=== PATIENT | female | born 1950 | race Caucasian/White ===

== ENCOUNTER 2016-05-21 11:14 | Outpatient (CLI) | payer MEDICARE | END 2016-05-21 11:15 | disposition home or self-care (01) | DX: E11.9 Type 2 diabetes mellitus without complications (principal); E78.5 Hyperlipidemia, unspecified; E03.9 Hypothyroidism, unspecified; I10 Essential (primary) hypertension ==

== ENCOUNTER 2016-10-23 14:01 | Outpatient (CLI) | payer MEDICARE ==
--- NOTE | 2016-10-24 13:04 | Mammography Report ---
DIGITAL SCREENING MAMMOGRAM: 10/23/2016 CLINICAL INDICATION: A 66-year-old with history of late childbearing, for screening. COMPARISON: 10/2013, 05/2012, 12/2009, 12/2008, 10/2007, 09/2006. TECHNIQUE: Routine CC and MLO projections were obtained of the breasts. FINDINGS: Parenchymal tissue within the breasts is predominantly fatty replaced. There are no domina nt masses, suspicious microcalcifications, or secondary signs of malignancy. In comparison to the pre vious studies, there are no significant changes. IMPRESSION: NO MAMMOGRAPHIC EVIDENCE OF MALIGNANCY. NO SIGNIFICANT INTERVAL CHANGES. RECOMMENDATION: Screening mammography is recommended annually. BIRADS category 1 - negative. STANDARD QUALIFYING STATEMENTS 1. This examination was reviewed with the aid of Computed-Aided Detection (CAD). 2. A negative or benign imaging report should not delay biopsy if clinically suspicious findings are present. Consider surgical consultation if warranted. More than 5% of cancers are not identified by i maging. 3. Dense breasts may obscure an underlying neoplasm. JOB #: [id number] EXT JOB #:[id number]
== END 2016-10-23 14:02 | disposition home or self-care (01) ==
LOC: DI.S 14:01
PROVIDERS: ATTEND Physician Assistant Medical
DX: Z12.31 Encounter for screening mammogram for malignant neoplasm of breast (principal)
CPT/HCPCS: 77067

== ENCOUNTER 2017-06-12 11:16 | Outpatient (CLI) | payer MEDICARE ==
[2017-06-12 18:25] LABS: CHOL/HDL RATIO 2.9 (<4.4); CHOLESTEROL 137 mg/dL; HDL CHOLESTEROL 47 mg/dL; LDL CHOLESTEROL,CALCULATED 63 mg/dL; LDL/HDL RATIO 1.3 (<4.4); VLDL CHOLESTEROL 27 mg/dL
[2017-06-12 19:09] LABS: CARBAMAZEPINE (TEGRETOL) < 2.0 ug/mL
[2017-06-12 19:31] LABS: HB2 TOTAL 13.6 g/dL; HEMOGLOBIN A1C 0.66 g/dL; HEMOGLOBIN A1C % 6.6 % (4.6-6.2)
== END 2017-06-12 11:17 | disposition home or self-care (01) ==
LOC: LAB.F 11:16
PROVIDERS: ATTEND Physician Assistant Medical
DX: E78.5 Hyperlipidemia, unspecified (principal); E11.9 Type 2 diabetes mellitus without complications; E03.9 Hypothyroidism, unspecified; Z51.81 Encounter for therapeutic drug level monitoring
CPT/HCPCS: 36415; 80061; 80156; 83036; 83721; 84443

== ENCOUNTER 2017-11-17 15:57 | Outpatient (CLI) | payer MEDICARE ==
[2017-11-17 17:54] LABS: CALCIUM 9.2 mg/dL (8.5-10.3); CREATININE 0.8 mg/dL (0.4-1.0)
== END 2017-11-17 15:58 | disposition home or self-care (01) ==
LOC: LAB.F 15:57
PROVIDERS: ATTEND Physician Assistant Medical
DX: I10 Essential (primary) hypertension (principal)
CPT/HCPCS: 36415; 80048

== ENCOUNTER 2017-12-23 15:18 | Outpatient (CLI) | payer MEDICARE ==
[2017-12-23 18:10] LABS: ALBUMIN 4.5 g/dL (3.2-5.5); ALBUMIN/GLOBULIN RATIO 1.7 (1.0-2.2); BILIRUBIN,TOTAL 0.4 mg/dL (0.2-1.0); CREATININE 0.7 mg/dL (0.4-1.0); TOTAL PROTEIN 7.2 g/dL (6.7-8.2)
[2017-12-23 18:50] LABS: HB2 TOTAL 13.8 g/dL; HEMOGLOBIN A1C 0.82 g/dL; HEMOGLOBIN A1C % 7.6 % (4.6-6.2)
== END 2017-12-23 15:19 | disposition home or self-care (01) ==
LOC: LAB.F 15:18
PROVIDERS: ATTEND Physician Assistant Medical
DX: I10 Essential (primary) hypertension (principal); E11.9 Type 2 diabetes mellitus without complications
CPT/HCPCS: 36415; 80053; 82043; 83036

== ENCOUNTER 2018-10-11 00:41 | Emergency (ER) | payer MEDICARE, OTHER ==
[2018-10-11] MEDS ORDERED: AZITHROMYCIN 250 MG TABLET PO STA (01:30)
[2018-10-11] MEDS ORDERED: DEXAMETHASONE 10 MG/ML VIAL PO STA (01:30)
[2018-10-11] MEDS ORDERED: CHERRY SYRUP 10 ML UDC PO ONE (01:30)
--- NOTE | 2018-10-11 01:33 | ED Physician Documentation ---
History of Present Illness - Stated complaint Stated Complaint: FEVER/BOWER/BODY ACHES - Chief complaint Chief Complaint: Fever - History obtained from History obtained from: Patient, Family - History of Present Illness Timing: Today - Additonal information Additional information: Previously well 68-year-old female complains of a low-grade fever and muscle and joint aches and pains beginning today. She has had minimal cough and she does have a headache. She felt that the headache may be a migraine when it began yesterday. Today she has developed a fever and aches and pains. She denies muffled hearing or ear pain she denies sore throat she denies urinary symptoms or difficulty breathing. Review of Systems Constitutional: reports: Fever, Chills, Myalgias, Fatigue, Sweats Eyes: denies: Decreased vision Ears: denies: Ear pain Nose: denies: Rhinorrhea / runny nose, Congestion Throat: denies: Sore throat Cardiac: denies: Chest pain / pressure, Palpitations Respiratory: reports: Cough. denies: Dyspnea GI: denies: Abdominal Pain, Nausea, Vomiting : denies: Dysuria, Frequency Skin: denies: Rash Musculoskeletal: denies: Neck pain, Back pain, Extremity pain Neurologic: reports: Headache. denies: Generalized weakness, Focal weakness, N umbness, Head injury, LOC PD PAST MEDICAL HISTORY - Past Medical History Past Medical History: Yes Cardiovascular: Hypertension, High cholesterol, Other Respiratory: Pneumonia Neuro: Headaches, Migraines Endocrine/Autoimmune: Type 2 diabetes, HyPOthyroidism GI: GERD, Hemorrhoids VENUE ATTENDANT: None : None HEENT: None Psych: Anxiety Musculoskeletal: Osteoarthritis, Chronic back pain Other Past Medical History: ventricular arrhythmia, diverticuli - Past Surgical History Past Surgical History: Yes General: Colonoscopy /VENUE ATTENDANT: Hysterectomy, Oophrectomy HEENT: Cataracts, Tonsil/Adenoidectomy - Present Medications Home Medications: Ambulatory Orders Medication Instructions Recorded Confirmed Atenolol 25 mg PO 05/17/15 05/17/15 Atorvastatin [Lipitor] 1 mg 05/17/15 05/17/15 Gabapentin 100 mg PO BID 05/17/15 05/17/15 Lisinopril 5 mg PO 05/17/15 05/17/15 Omeprazole 10 mg PO 05/17/15 05/17/15 PARoxetine [Paxil] 10 mg PO DAILY 05/17/15 05/17/15 Rizatriptan Benzoate [Rizatriptan] 5 mg PO 05/17/15 05/17/15 chlorproMAZINE [Thorazine] 25 mg PO TID 05/17/15 05/17/15 hydroCHLOROthiazide 12.5 mg PO 05/17/15 05/17/15 [Hydrochlorothiazide] metFORMIN [Glucophage] 500 mg PO ONCE 05/17/15 05/17/15 oxyCODONE [Roxicodone] 5 mg PO ONCE 05/17/15 05/17/15 Amox/Clav 875/125 [Augmentin] 1 each PO Q12H #20 tablet 10/11/18 - Allergies Allergies/Adverse Reactions: Allergies Allergy/AdvReac Type Severity Reaction Status Date / Time NSAIDS (Non-Steroidal Allergy Unknown Verified 10/11/18 00:58 Anti-Inflamma - Social History Does the pt smoke?: No Smoking Status: Never smoker Does the pt drink ETOH?: Yes ETOH Use: Wine Substance Use and Type: Marijuana - Immunizations Immunizations are current?: No Immunizations: TDAP >10years/unknown, Other immun current PD ED PE NORMAL - Vitals Vital signs reviewed: Yes (febrile ) - General General: Alert and oriented X 3, No acute distress, Well developed/nourished - HEENT HEENT: Atraumatic, PERRL, EOMI, Pharynx benign, Dentition benign, Other (There is inflamation to the right TM along the umbo and the left TM is clear ) - Neck Neck: Supple, no meningeal sign, No bony TTP - Cardiac Cardiac: RRR, No murmur - Respiratory Respiratory: No respiratory distress, Clear bilaterally - Abdomen Abdomen: Soft, Non tender - Back Back: No CVA TTP, No spinal TTP - Derm Derm: Normal color, Warm and dry, No rash - Extremities Extremities: No deformity, No edema - Neuro Neuro: Alert and oriented X 3, forensic social worker 2-12 intact, No motor deficit, No sensory deficit, Normal speech Eye Opening: Spontaneous Motor: Obeys Commands Verbal: Oriented GCS Score: 15 - Psych Psych: Normal mood, Normal affect Results - Vitals Vitals: Vital Signs - 24 hr 10/11/18 10/11/18 00:52 02:03 Temperature 37.8 C H 37.7 C H Heart Rate 69 Respiratory 16 Rate Blood Pressure 129/77 O2 Saturation 96 Oxygen O2 Source Room air - Labs Labs: Laboratory Tests 10/11/18 10/11/18 10/11/18 01:43 01:43 02:00 WBC 7.1 RBC 4.34 Hgb 12.9 Hct 38.1 MCV 87.9 MCH 29.7 MCHC 33.8 RDW 13.8 Plt Count 189 MPV 7.1 L Neut # (Auto) 5.4 Lymph # (Auto) 1.0 L Ste[place]s # (Auto) 0.6 Eos # (Auto) 0.1 Baso # (Auto) 0.0 Absolute Nucleated RBC 0.01 Nucleated RBC % 0.1 Sodium 138 Potassium 4.2 Chloride 102 Carbon Dioxide 24 Anion Gap 12.0 BUN 13 Creatinine 0.8 Estimated GFR (MDRD) 71 L Glucose 128 H Calcium 9.2 Total Bilirubin 0.9 AST 21 ALT 20 Alkaline Phosphatase 53 Total Protein 7.4 Albumin 4.1 Globulin 3.3 Albumin/Globulin Ratio 1.2 Lipase 34 Urine Color YELLOW Urine Clarity CLEAR Urine pH 6.5 Ur Specific [place] <=1.005 Urine Protein NEGATIVE Urine Glucose (UA) NEGATIVE Urine Ketones NEGATIVE Urine Occult Blood NEGATIVE Urine Nitrite NEGATIVE Urine Bilirubin NEGATIVE Urine Urobilinogen 0.2 (NORMAL) Ur Leukocyte Esterase TRACE H Urine RBC None Seen Urine WBC 6-10 H Ur Squamous Epith Cells RARE Squamous Urine Bacteria Rare Ur Microscopic Review INDICATED Urine Culture Comments INDICATED Procedures - IVC sono (time) 0120 Bedside IVC sono: IVC measures (cm) (1.4), Euvolemia (near) PD MEDICAL DECISION MAKING - ED course Complexity details: reviewed results, re-evaluated patient, considered differential, d/w patient, d/w family ED course: 68-year-old female with fever muscle and joint aches and pains has right otitis on examination. She is administered dexamethasone 10 mg orally and azithromycin 500 mg orally. Blood work and urinalysis are obtained. urinalysis is concerning for UTI and azithro is not a good choice for UTI. She is administered IM rocephin and we will place her on augmentin for both the OM and the UTI. Departure - Departure Disposition: 01 Home, Self Care Clinical Impression: Otitis media Qualifiers: Otitis media type: suppurative Chronicity: acute Laterality: right Recurrence: non-recurrent Spontaneous tympanic membrane rupture: without spontaneous rupture Qualified Code(s): H66.001 - Acute suppurative otitis media without spontaneous rupture of ear drum, right ear Urinary tract infection Qualifiers: Urinary tract infection type: acute cystitis Hematuria presence: without hematuria Qualified Code(s): N30.00 - Acute cystitis without hematuria Condition: Stable Instructions: ED Otitis Media Acute Adult, ED UTI Cystitis Female Follow-Up: Gianna Paez PA-C [Primary Care Provider] - Prescriptions: Amox/Clav 875/125 [Augmentin] 1 each PO Q12H #20 tablet
[2018-10-11 01:51] LABS: BASOPHILS % (AUTO) 0.4 %; EOSINOPHILS # (AUTO) 0.1 10^3/uL (0.0-0.7); EOSINOPHILS % (AUTO) 1.3 %; HGB - HEMOGLOBIN 12.9 g/dL (12.0-16.0); LYMPHOCYTES % (AUTO) 13.6 %; MEAN CORPUSCULAR HEMOGLOBIN 29.7 pg (27.0-31.0); MEAN CORPUSCULAR HGB CONC 33.8 g/dL (32.0-36.0); MEAN CORPUSCULAR VOLUME 87.9 fL (81.0-99.0); MEAN PLATELET VOLUME 7.1 fL (7.9-10.8); MONOCYTES # (AUTO) 0.6 10^3/uL (0.0-1.0); MONOCYTES % (AUTO) 8.1 %; NEUTROPHILS # (AUTO) 5.4 10^3/uL (1.5-6.6); NEUTROPHILS % (AUTO) 76.6 %; PLT - PLATELET COUNT 189 10^3/uL (130-450); RED BLOOD COUNT 4.34 10^6/uL (4.20-5.40); RED CELL DISTRIBUTION WIDTH 13.8 % (12.0-15.0); WHITE BLOOD COUNT 7.1 x10^3/uL (4.8-10.8)
[2018-10-11 02:01] LABS: ALBUMIN 4.1 g/dL (3.2-5.5); ALBUMIN/GLOBULIN RATIO 1.2 (1.0-2.2); BILIRUBIN,TOTAL 0.9 mg/dL (0.2-1.0); CALCIUM 9.2 mg/dL (8.5-10.3); CREATININE 0.8 mg/dL (0.4-1.0); TOTAL PROTEIN 7.4 g/dL (6.7-8.2)
[2018-10-11 02:09] LABS: BILIRUBIN,URINE NEGATIVE (NEGATIVE); GLUCOSE, URINE (UA) NEGATIVE (NEGATIVE); KETONES,URINE (UA) NEGATIVE (NEGATIVE); LEUKOCYTE ESTERASE, URINE TRACE (NEGATIVE); NITRITE,URINE NEGATIVE (NEGATIVE); OCCULT BLOOD,URINE NEGATIVE (NEGATIVE); PH,URINE 6.5 PH (5.0-7.5); PROTEIN,URINE NEGATIVE (NEGATIVE); UROBILINOGEN,URINE 0.2 (NORMAL) E.U./dL (NORMAL)
[2018-10-11 02:10] LABS: CLARITY,URINE CLEAR (CLEAR)
[2018-10-11 02:15] LABS: BACTERIA,URINE Rare /HPF (None Seen); RBC,URINE None Seen /HPF (0-5); SQUAMOUS EPITHELIAL CELL,UR RARE Squamous (<= Few)
[2018-10-11] MEDS ORDERED: LIDOCAINE 1% 2 ML VIAL MC ONE (02:26)
[2018-10-11] MEDS ORDERED: cefTRIAXone 1 GM VIAL IM STA (02:26)
[2018-10-11 03:24] VITALS: BP 105/77
== END 2018-10-11 03:25 | disposition home or self-care (01) ==
LOC: ED 00:41
DX: H66.001 Acute suppurative otitis media without spontaneous rupture of ear drum, right ear (principal); N30.00 Acute cystitis without hematuria; I10 Essential (primary) hypertension; E11.9 Type 2 diabetes mellitus without complications; Z79.84 Long term (current) use of oral hypoglycemic drugs
CPT/HCPCS: 36415; 80053; 81001; 83690; 85025; 87086; 96372; 99283; A9270; 81003

== ENCOUNTER 2018-11-30 12:28 | Outpatient (CLI) | payer MEDICARE, OTHER ==
[2018-11-30 17:53] LABS: CREATININE,URINE 42.8 mg/dL; MICROALBUM/CREATININE RATIO,UR 4.7 ug/mg (<30.0); MICROALBUMIN,URINE 0.2 mg/dL (0-300.0)
[2018-11-30 19:06] LABS: FERRITIN 20.3 ng/mL (11.0-306.8); VLDL CHOLESTEROL 29 mg/dL
[2018-11-30 19:07] LABS: CHOL/HDL RATIO 2.8 (<4.4); CHOLESTEROL 146 mg/dL; HDL CHOLESTEROL 53 mg/dL; LDL CHOLESTEROL,CALCULATED 64 mg/dL; LDL/HDL RATIO 1.2 (<4.4)
[2018-11-30 19:26] LABS: HB2 TOTAL 14.2 g/dL; HEMOGLOBIN A1C 0.7 g/dL; HEMOGLOBIN A1C % 6.7 % (4.6-6.2)
== END 2018-11-30 12:29 | disposition home or self-care (01) ==
LOC: LAB.S 12:28
PROVIDERS: ATTEND Physician Assistant Medical
DX: E11.9 Type 2 diabetes mellitus without complications (principal)
CPT/HCPCS: 36415; 80061; 82043; 82570; 82607; 82728; 83036; 83721